=== PATIENT | female | born 1945 | race Caucasian/White ===

== ENCOUNTER 2023-03-16 09:24 | Inpatient (IN) | payer OTHER ==
[2023-03-16] VITALS (14 sets, daily range): BP systolic 117–168; BP diastolic 61–99; PULSE 79–131; RESP 14–23; TEMP 97.7–98.3; O2SAT 92–96
[~2023-03-16] VITALS: Ht 165.1 cm; Wt 69.1 kg
[2023-03-16 09:44] LABS: BASOPHILS % (AUTO) 0.4 % (0-1); EOSINOPHILS % (AUTO) 0.3 % (0-6); HEMATOCRIT 37.2 % (35.0-45.0); HEMOGLOBIN 11.7 g/dl (12.0-16.0); LYMPHOCYTES # (AUTO) 1.3 X10'3 (1.1-4.8); LYMPHOCYTES % (AUTO) 20.9 % (21-51); MEAN CORPUSCULAR HEMOGLOBIN 27.2 PG (27.0-31.0); MEAN CORPUSCULAR HGB CONC 31.6 g/dL (33.0-36.5); MEAN CORPUSCULAR VOLUME 86.3 FL (78-98); MEAN PLATELET VOLUME 8.3 FL (7.4-10.4); MONOCYTES # (AUTO) 0.6 X10'3 (0-0.9); MONOCYTES % (AUTO) 8.9 % (2-12); NEUTROPHILS # (AUTO) 4.5 X10'3 (1.8-7.7); NEUTROPHILS % (AUTO) 69.5 % (42-75); PLATELET COUNT 258 X10'3 (140-440); RED BLOOD COUNT 4.31 X10'6 (4.20-5.60); RED CELL DISTRIBUTION WIDTH 18.8 % (11.5-14.5); WHITE BLOOD COUNT 6.4 X10'3 (4.5-11.0)
[2023-03-16] MEDS ORDERED: normal saline 1000ml 1,000 ML IV ONE (09:55)
[2023-03-16] MEDS ORDERED: aspirin 325mg tablet PO ONE ×2 (09:55→11:20)
[2023-03-16] MEDS ORDERED: diltiazem 5mg/ml 5ml inj. IV ONE (09:55)
[2023-03-16] MEDS: diltiazem-NS 100mg/100ml 100 ML IV SCH ×2 (10:05→18:35)
[2023-03-16 10:12] LABS: ALANINE AMINOTRANSFERASE 15 U/L (12-78); ALBUMIN/GLOBULIN RATIO 1.3 (1.1-1.5); ALKALINE PHOSPHATASE 98 IU/L (46-116); ANION GAP 15 (8-16); ASPARTATE AMINO TRANSFERASE 18 U/L (10-37); BILIRUBIN,TOTAL 0.6 MG/DL (0.1-1.0); BLOOD UREA NITROGEN 13 MG/DL (7-18); BUN/CREATININE RATIO 15.7 (10.0-20.0); CALCIUM 9.3 MG/DL (8.5-10.1); CHLORIDE 105 MMOL/L (99-107); CREATININE 0.83 MG/DL (0.40-0.90); GLUCOSE 97 MG/DL (70-104); POTASSIUM 3.7 MMOL/L (3.5-5.1); SODIUM 143 MMOL/L (135-145); TOTAL CARBON DIOXIDE 22.8 MMOL/L (24-32); TOTAL PROTEIN 7.2 G/DL (6.4-8.2); eGFR 67 ML/MIN
[2023-03-16 10:32] LABS: ANISOCYTOSIS 2+; ELLIPTOCYTES FEW; LARGE PLATELETS FEW; PLATELET ESTIMATE NORMAL; ROULEAUX 1+
[2023-03-16 10:33] LABS: SCHISTOCYTES FEW
[2023-03-16] MEDS ORDERED: mag hydrox/Alum hydrox/simeth 30ml oral suspension PO PRN (11:15)
[2023-03-16] MEDS ORDERED: ondansetron/PF 4mg/2ml inj IV PRN (11:15)
[2023-03-16] MEDS ORDERED: PERFLUTREN PROTEIN-A MICROSPHR (Optison) 0.22 MG/ML 3ML VIAL IV ONE (11:15)
[2023-03-16] MEDS ORDERED: magnesium 2GM in 50ml NS 50 ML IV PRN (11:15)
[2023-03-16] MEDS ORDERED: acetaminophen 325mg tablet PO PRN (11:15)
[2023-03-16] MEDS ORDERED: magnesium Cl slow-release 64mg tablet PO PRN (11:15)
[2023-03-16] MEDS ORDERED: potassium Cl 40MEQ/1/2NS 520ml 520 ML IV PRN (11:15)
[2023-03-16] MEDS ORDERED: magnesium 4gm in 100ml NS 100 ML IV PRN (11:15)
[2023-03-16] MEDS ORDERED: magnesium hydroxide 30ml (MOM) UD suspension PO PRN (11:15)
[2023-03-16] MEDS ORDERED: potassium Cl 20 mEq SR tablet PO PRN (11:15)
--- NOTE | 2023-03-16 11:29 | NUR ---
VERBAL ORDER FROM DR REBOLLEDO CAME TO NURSES STATION TO INCREASE THE DILTAZEM DRIP TO 10 MG/HR FROM 5 MG/HR ,WILL FOLLOW THE ORDERS.
[2023-03-16 12:09] LABS: MAGNESIUM 1.9 MG/DL (1.5-2.4); POTASSIUM 3.6 MMOL/L (3.5-5.1)
[2023-03-16] MEDS: furosemide 10 MG/1 ML 10ml inj IV SCH (12:18)
--- NOTE | 2023-03-16 13:37 | NUR ---
NOTIFIED DR REBOLLEDO THAT PT HR IS IN BTW 101-130'S ON DILTIAZEM 10 MG /HR BP 143/78.NEW TELE ORDER TO GIVE DIGIOXIN 250 MCG IV ONCE NOW AND THEN REPEAT THE DOSE OF DIGIOXIN 250 MCG IN 6 HR.WILL FOLLOW THE ORDERS.
[2023-03-16] MEDS ORDERED: digoxin 250mcg/ml 2ml ampule IV ONE ×4 (13:45→20:05)
[2023-03-16] MEDS ORDERED: CLON0.1T PO (14:55)
[2023-03-16] MEDS ORDERED: NO HOME MEDS (14:59)
--- NOTE | 2023-03-16 17:30 | NUR ---
Patient in room ED 4. I have received report from Lois [employer] and had the opportunity to ask questions and assume patient care. Lois stated she will call pharmacy and retime the Dig to the correct time and put the correct dose for the Cardizem gtt. Will notify NOC RN as well.
--- NOTE | 2023-03-16 18:25 | NUR ---
Problems reprioritized. Patient report given, questions answered & plan of care reviewed with Xochitl LIND.
--- NOTE | 2023-03-16 18:47 | NUR ---
Patient in room PCU 3012. I have received report from Wilfredo LIND, and had the opportunity to ask questions and assume patient care.
[2023-03-16] MEDS: docusate sod 100mg capsule PO SCH (19:39)
[2023-03-16] MEDS: K and/or MAG REPLACEMENT MC SCH (19:39)
[2023-03-17] VITALS (21 sets, daily range): BP systolic 99–177; BP diastolic 62–102; PULSE 70–106; RESP 13–23; TEMP 97.4–99.6; O2SAT 93–95
[2023-03-17] MEDS: diltiazem-NS 100mg/100ml 100 ML IV SCH (05:09)
--- NOTE | 2023-03-17 05:58 | NUR ---
provider paged PAGER ID: [phone] MESSAGE: [id number]. Nagi Neri. BP is elevated at 168/80 (92) Pt has no PRN antihypertensive. Pt also wondering if 0800 lasix can be changed from IV to PO.
--- NOTE | 2023-03-17 06:09 | NUR ---
Provider called back gave order of hydralazine 20mg po Q6h PRN for SBP above 160. Per lasix provider does not want to change lasix from IV form. Order read back with provider.
[2023-03-17] MEDS ORDERED: hyDRALAzine 10mg tablet PO PRN (06:10)
--- NOTE | 2023-03-17 06:30 | NUR ---
Problems reprioritized. Patient report given, questions answered & plan of care reviewed with Chavez Rn. Pt stable at shift change.
--- NOTE | 2023-03-17 06:41 | NUR ---
Patient in room U 3012. I have received report from Xochitl and had the opportunity to ask questions and assume patient care. Addendum: 03/17/23 at 0642 by Chavez Askew RN Amended: Links added.
[2023-03-17] MEDS: furosemide 10 MG/1 ML 10ml inj IV SCH (07:14)
[2023-03-17] MEDS: docusate sod 100mg capsule PO SCH ×2 (07:15→21:13)
[2023-03-17 07:32] LABS: BASOPHILS % (AUTO) 0.3 % (0-1); EOSINOPHILS % (AUTO) 0.3 % (0-6); HEMATOCRIT 36.1 % (35.0-45.0); HEMOGLOBIN 11.6 g/dl (12.0-16.0); LYMPHOCYTES # (AUTO) 1.2 X10'3 (1.1-4.8); MEAN CORPUSCULAR HEMOGLOBIN 27.4 PG (27.0-31.0); MEAN CORPUSCULAR HGB CONC 32.2 g/dL (33.0-36.5); MEAN CORPUSCULAR VOLUME 85.1 FL (78-98); MEAN PLATELET VOLUME 8.1 FL (7.4-10.4); MONOCYTES # (AUTO) 0.6 X10'3 (0-0.9); NEUTROPHILS % (AUTO) 73.4 % (42-75); PLATELET COUNT 237 X10'3 (140-440); RED BLOOD COUNT 4.24 X10'6 (4.20-5.60); RED CELL DISTRIBUTION WIDTH 18.6 % (11.5-14.5); WHITE BLOOD COUNT 6.8 X10'3 (4.5-11.0)
[2023-03-17 07:56] LABS: ALBUMIN 3.6 G/DL (3.4-5.0); ANION GAP 13 (8-16); BLOOD UREA NITROGEN 12 MG/DL (7-18); BUN/CREATININE RATIO 14.1 (10.0-20.0); CALCIUM 8.8 MG/DL (8.5-10.1); CHLORIDE 105 MMOL/L (99-107); CREATININE 0.85 MG/DL (0.40-0.90); GLUCOSE 101 MG/DL (70-104); POTASSIUM 3.3 MMOL/L (3.5-5.1); SODIUM 141 MMOL/L (135-145); TOTAL CARBON DIOXIDE 22.6 MMOL/L (24-32); eGFR 65 ML/MIN
[2023-03-17] MEDS ORDERED: digoxin 250mcg (0.25mg) tablet PO SCH (08:00)
[2023-03-17] MEDS ORDERED: enoxaparin 40mg/0.4ml syringe SUBCUT SCH (08:00)
[2023-03-17 08:07] LABS: ANISOCYTOSIS 2+; PLATELET ESTIMATE NORMAL
[2023-03-17] MEDS: K and/or MAG REPLACEMENT MC SCH ×2 (08:07→20:00)
[2023-03-17] MEDS: potassium Cl 20 mEq SR tablet PO PRN ×3 (08:08→16:33)
[2023-03-17] MEDS ORDERED: aspirin 325mg tablet PO SCH (08:30)
[2023-03-17] MEDS ORDERED: lisinopril 10 MG tablet PO ONE (11:25)
[2023-03-17] MEDS ORDERED: diltiazem 30mg tablet PO SCH (14:00)
--- NOTE | 2023-03-17 18:00 | NUR ---
Patient in room PCU 3012. I have received report from Chavez LIND and had the opportunity to ask questions and assume patient care.
--- NOTE | 2023-03-17 18:20 | NUR ---
Problems reprioritized. Patient report given, questions answered & plan of care reviewed with Addendum: 03/17/23 at 1820 by Chavez Askew RN Amended: Links added.
[2023-03-17] MEDS: apixaban 5mg tablet PO SCH (21:13)
[2023-03-18 02:00] VITALS: BP 130/82; PULSE 91; RESP 13; TEMP 98.9; O2SAT 95
[2023-03-18 06:30] VITALS: BP 155/80; PULSE 100; RESP 17; TEMP 97.4; O2SAT 98
--- NOTE | 2023-03-18 07:16 | NUR ---
Problems reprioritized. Patient report given, questions answered & plan of care reviewed with Rama RN.
[2023-03-18 07:28] LABS: ALBUMIN 3.6 G/DL (3.4-5.0); ANION GAP 14 (8-16); BLOOD UREA NITROGEN 10 MG/DL (7-18); BUN/CREATININE RATIO 12.2 (10.0-20.0); CALCIUM 9.2 MG/DL (8.5-10.1); CHLORIDE 106 MMOL/L (99-107); CREATININE 0.82 MG/DL (0.40-0.90); GLUCOSE 96 MG/DL (70-104); POTASSIUM 3.7 MMOL/L (3.5-5.1); SODIUM 142 MMOL/L (135-145); TOTAL CARBON DIOXIDE 22.3 MMOL/L (24-32); eGFR 68 ML/MIN
[2023-03-18 07:29] LABS: BASOPHILS % (AUTO) 0.4 % (0-1); EOSINOPHILS # (AUTO) 0.1 X10'3 (0-0.9); EOSINOPHILS % (AUTO) 1.6 % (0-6); HEMATOCRIT 38.9 % (35.0-45.0); HEMOGLOBIN 12.5 g/dl (12.0-16.0); LYMPHOCYTES # (AUTO) 1.7 X10'3 (1.1-4.8); LYMPHOCYTES % (AUTO) 23.6 % (21-51); MEAN CORPUSCULAR HEMOGLOBIN 27.4 PG (27.0-31.0); MEAN CORPUSCULAR HGB CONC 32.1 g/dL (33.0-36.5); MEAN CORPUSCULAR VOLUME 85.5 FL (78-98); MEAN PLATELET VOLUME 8.3 FL (7.4-10.4); MONOCYTES # (AUTO) 0.7 X10'3 (0-0.9); MONOCYTES % (AUTO) 9.8 % (2-12); NEUTROPHILS # (AUTO) 4.7 X10'3 (1.8-7.7); NEUTROPHILS % (AUTO) 64.6 % (42-75); PLATELET COUNT 262 X10'3 (140-440); RED BLOOD COUNT 4.55 X10'6 (4.20-5.60); RED CELL DISTRIBUTION WIDTH 18.5 % (11.5-14.5); WHITE BLOOD COUNT 7.2 X10'3 (4.5-11.0)
[2023-03-18] MEDS: docusate sod 100mg capsule PO SCH (08:00)
[2023-03-18] MEDS: K and/or MAG REPLACEMENT MC SCH (08:00)
[2023-03-18] MEDS ORDERED: lisinopril 10 MG tablet PO SCH (08:00)
[2023-03-18] MEDS ORDERED: diltiazem 30mg tablet PO SCH (09:19)
[2023-03-18] MEDS: apixaban 5mg tablet PO SCH (10:00)
[2023-03-18] MEDS ORDERED: diltiazem CD 120mg capsule (once-daily) PO SCH (10:35)
[2023-03-18] MEDS ORDERED: DILT240C90 PO (10:40)
[2023-03-18] MEDS ORDERED: APIX5TAB3 PO (10:40)
[2023-03-18] MEDS ORDERED: LISI10TA27 PO (10:40)
[2023-03-18 11:00] VITALS: BP 139/58; PULSE 79; RESP 16; TEMP 97.9; O2SAT 99
--- NOTE | 2023-03-18 13:26 | NUR ---
pt discharged to home. all dc instructions explained to patient and patients with both verbalizing understanding regarding plan of care. pt new to diagnosis and new to medication prescriptions. extra education discussed on these items. pt given an eliquis coupon and advised to call dr Sinclair's office immediately if unable to affort the cost of eliquis. pt just started long acting diltiazem this am. heart rate is a bit on the higher side and pt instructed to monitor blood pressure and heart rate before taking medications and also to log her numbers for her first follow up with dr sinclair. pt verbalized the importance of finding a primary care doctor and making a follow up appt right away. pt left the floor on foot with her , vss a/ox[employer] cell phone and communications billing analyst with the patient
== END 2023-03-18 13:24 | disposition home or self-care (01) | DRG 291 ==
LOC: ER 09:26 → ED HOLD 11:18 → EDBEDREQ 17:18 → PCU 3S 17:35
PROVIDERS: ADMIT Family Medicine; ATTEND Family Medicine
DX: I11.0 Hypertensive heart disease with heart failure (principal); I50.31 Acute diastolic (congestive) heart failure; E87.6 Hypokalemia; R06.09 Other forms of dyspnea; I34.0 Nonrheumatic mitral (valve) insufficiency; I48.91 Unspecified atrial fibrillation; R00.0 Tachycardia, unspecified; R09.89 Other specified symptoms and signs involving the circulatory and respiratory systems; Z82.49 Family history of ischemic heart disease and other diseases of the circulatory system
CPT/HCPCS: 36415; 71045; 80048; 80053; 83735; 83880; 84132; 84439; 84443; 84480; 84484; 85008; 85025; 87081; 93005; 93306; 93970; 99285; G0378; J1160; J1650; J1940; J3490; J7030